=== PATIENT | female | born 1995 | race African-American/Black ===

== ENCOUNTER 2016-08-02 19:38 | Emergency (ER) | payer MEDICAID ==
[~2016-08-02 19:38] MED LIST: DOCU1CAP39 PO; HYDR10FO PR
[2016-08-02 19:40] VITALS: BP 101/65; PULSE 98; RESP 14; TEMP 98.3; O2SAT 98
== END 2016-08-02 22:00 | disposition left against medical advice (07) ==
LOC: NED 19:38
DX: R11.10 Vomiting, unspecified (principal); R19.7 Diarrhea, unspecified; Z53.21 Procedure and treatment not carried out due to patient leaving prior to being seen by health care provider
CPT/HCPCS: 99281